=== PATIENT | male | born 2000 | race Hispanic/Latino ===

== ENCOUNTER 2022-04-20 16:05 | Inpatient (IN) | payer OTHER ==
[~2022-04-20] VITALS: Ht 175.3 cm; Wt 83.2 kg
[2022-04-20 21:51] LABS: HEMATOCRIT 47.8 % (42.0-52.0); HEMOGLOBIN 16.6 g/dl (13.5-17.5); MEAN CORPUSCULAR HEMOGLOBIN 29.5 pg (27.0-33.0); MEAN CORPUSCULAR HGB CONC 34.7 g/dl (32.0-36.5); MEAN CORPUSCULAR VOLUME 85.1 fl (80.0-96.0); PLATELET COUNT, AUTOMATED 238 10^3/uL (150-450); RED BLOOD COUNT 5.62 10^6/uL (4.30-6.10); WHITE BLOOD COUNT 9.7 10^3/uL (4.0-10.0)
[2022-04-20 22:23] LABS: AMPHETAMINES LEVEL URINE NEGATIVE (NEGATIVE); BARBITURATES URINE NEGATIVE (NEGATIVE); BENZODIAZEPINES URINE NEGATIVE (NEGATIVE); CANNABINOIDS URINE NEGATIVE (NEGATIVE); COCAINE METABOLITE URINE NEGATIVE (NEGATIVE); METHADONE URINE NEGATIVE (NEGATIVE); OPIATES URINE NEGATIVE (NEGATIVE); PHENCYCLIDINE URINE NEGATIVE (NEGATIVE)
[2022-04-20 22:24] LABS: RSV AMPLIFICATION NEGATIVE (NEGATIVE)
[2022-04-20 22:25] LABS: ETHYL ALCOHOL (ETHANOL) 0.004 % (0.000-0.010)
[2022-04-20 22:26] LABS: ACETAMINOPHEN LEVEL < 2.0 UG/ML (10.0-20.0)
[2022-04-20 22:27] LABS: ALBUMIN 4.7 G/DL (3.2-5.2); ALKALINE PHOSPHATASE 97 U/L (46-116); ALT/SGPT 19 U/L (7.0-40); AST/SGOT 19 U/L (<34); BILIRUBIN,DIRECT 0.1 MG/DL (<0.4); BILIRUBIN,TOTAL 0.3 MG/DL (0.3-1.2); BLOOD UREA NITROGEN 15 MG/DL (9-23); CALCIUM LEVEL 9.8 MG/DL (8.5-10.1); CARBON DIOXIDE LEVEL 27 MMOL/L (20-31); CHLORIDE LEVEL 104 MMOL/L (98-107); CREATININE FOR GFR 1.01 MG/DL (0.70-1.30); GLUCOSE, FASTING 102 MG/DL (60-100); POTASSIUM SERUM 4.3 MMOL/L (3.5-5.1); SALICYLATE LEVEL < 3.0 MG/DL (<30); SODIUM LEVEL 141 MMOL/L (136-145); TOTAL PROTEIN 7.9 G/DL (5.7-8.2)
[2022-04-20 22:30] LABS: THYROID STIMULATING HORMONE 2.116 uIU/ML (0.48-4.17)
[2022-04-20] MEDS ORDERED: LORazepam 1 MG TAB PO STA (23:00)
[2022-04-20] MEDS ORDERED: ACETAMINOPHEN 325 MG TAB PO ONE (23:00)
[2022-04-21] MEDS ORDERED: HOME MED LIST COMPLETE! XX SCH (00:40)
[2022-04-21] MEDS ORDERED: MOM 30ML SUSPENSION UDC PO PRN (13:40)
[2022-04-21] MEDS ORDERED: traZODone 50 MG TAB PO PRN (13:40)
[2022-04-21] MEDS ORDERED: ACETAMINOPHEN TAB 650MG DOSE (2X325MG) PO PRN (13:40)
[2022-04-21] MEDS ORDERED: MAALOX 30 ML SUSP *UDC PO PRN (13:40)
[2022-04-21 14:45] VITALS: BP 135/73
[2022-04-22 06:22] VITALS: BP 111/58
[2022-04-22 16:43] VITALS: BP 123/57
[2022-04-23 06:37] VITALS: BP 109/54
== END 2022-04-23 09:58 | disposition home or self-care (01) | DRG 885 ==
LOC: M ED 16:05 → M ED INP 04-21 13:36 → M PSY 04-21 14:47
PROVIDERS: ADMIT Student in an Organized Health Care Education/Training Program; ATTEND Psychiatry & Neurology Psychiatry
DX: F39 Unspecified mood [affective] disorder (principal); F17.200 Nicotine dependence, unspecified, uncomplicated; Z63.0 Problems in relationship with spouse or partner; F60.89 Other specific personality disorders

== ENCOUNTER → 2022-12-29 | Outpatient (CLI) | payer OTHER | LOC: M LAB 15:10 | PROVIDERS: ATTEND Internal Medicine Critical Care Medicine | DX: R91.8 Other nonspecific abnormal finding of lung field (principal) ==